=== PATIENT | female | born 1980 | race Two or more races ===

== ENCOUNTER 2017-04-01 08:55 | Observation (INO) | payer OTHER ==
[~2017-04-01] VITALS: Ht 165.1 cm; Wt 93.9 kg
[2017-04-01 09:02] VITALS: BP 151/71
[2017-04-01] MEDS ORDERED: TERBUTALINE SULFATE 1 MG/ML 1ML VIAL SC SCH (10:30)
[2017-04-01] MEDS ORDERED: LACTATED RINGER'S 1,000 ML IV ONE (11:55)
[2017-04-01] MEDS ORDERED: NIFEdipine 10 MG CAP PO ONE (13:15)
[2017-04-01] MEDS ORDERED: LACTATED RINGER'S 1,000 ML IV SCH (13:15)
[2017-04-01 13:22] LABS: Basophils # (auto) 0 uL; Basophils % (auto) 0.4 % (0.0-2.0); Eosinophils # (auto) 0 uL; Eosinophils % (auto) 0.3 % (0.0-7.0); Hematocrit 30.5 % (36.0-46.0); Hemoglobin 10.4 g/dL (12.2-16.2); Lymphocytes # (auto) 1.5 uL; Lymphocytes % (auto) 13.7 % (10.0-50.0); Mean Corpuscular Hgb Conc. 34.3 g/dL (32.0-36.0); Mean Corpuscular Volume 84.5 fL (80.0-100.0); Mean Platelet Volume 8.3 fL (7.4-10.4); Monocytes # (auto) 0.4 uL; Monocytes % (auto) 4.1 % (0.0-12.0); Neutrophils # (auto) 8.7 uL; Neutrophils % (auto) 81.5 % (37.0-80.0); Platelet Count (auto) 246 10^3/uL (140-450); Red Cell Distribution Width 13.8 % (11.6-16.0); White Blood Cell 10.7 10^3/uL (4.4-10.8)
[2017-04-01] MEDS ORDERED: BETAMETHASONE ACET (6MG/ML) 5ML VIAL IM SCH (13:30)
[2017-04-01] MEDS ORDERED: ERYTHROMY OPTH OINT 5mg/gm 1gm OP ONE (14:45)
[2017-04-01] MEDS ORDERED: PHYTONADIONE 1MG/0.5ML SYRINGE NEONATAL IM ONE (14:45)
[2017-04-01] MEDS ORDERED: HEPATITIS B VACCINE PED (PF) 10 MCG/0.5 ML IM ONE (14:45)
== END 2017-04-01 17:00 | disposition home or self-care (01) | DRG 778 ==
LOC: ER 08:55 → LDRP 09:20 → EDUNIT# 09:20 → LDRP 09:51
PROVIDERS: ADMIT Specialist; ATTEND Specialist
DX: O20.0 Threatened abortion (principal); Z3A.35 35 weeks gestation of pregnancy
CPT/HCPCS: 36415; 59025; 76815; 81002; 85025; 96360; 96361; 96372; 99285; G0378; J0702; J3105; 96366

== ENCOUNTER 2017-04-02 13:00 | Observation (INO) | payer OTHER ==
[2017-04-02] MEDS ORDERED: BETAMETHASONE ACET (6MG/ML) 5ML VIAL IM SCH (22:00)
== END 2017-04-02 13:50 | disposition home or self-care (01) | DRG 998 ==
LOC: LDRP 13:00 → EDUNIT# 13:00
PROVIDERS: ADMIT Obstetrics & Gynecology; ATTEND Obstetrics & Gynecology
DX: O26.899 Other specified pregnancy related conditions, unspecified trimester (principal); Z02.89 Encounter for other administrative examinations; Z3A.00 Weeks of gestation of pregnancy not specified
CPT/HCPCS: 59025; 81002; 96372; G0378

== ENCOUNTER 2017-04-13 11:00 | Observation (INO) | payer OTHER | END 2017-04-13 12:37 | disposition home or self-care (01) | DRG 782 | LOC: LDRP 11:00 | PROVIDERS: ADMIT Specialist; ATTEND Specialist | DX: O44.23 Partial placenta previa NOS or without hemorrhage, third trimester (principal); Z3A.36 36 weeks gestation of pregnancy | CPT/HCPCS: 59025; 76818; 82948; 82962; G0378 ==

== ENCOUNTER 2017-04-15 03:03 | Inpatient (IN) | payer OTHER ==
[2017-04-15] VITALS (11 sets, daily range): BP systolic 110–130; BP diastolic 67–87
[~2017-04-15] VITALS: Ht 1 cm; Wt 0.5 kg
[2017-04-15] MEDS ORDERED: LACTATED RINGER'S 1,000 ML IV SCH (03:13)
[2017-04-15 03:46] LABS: Basophils # (auto) 0.1 uL; Basophils % (auto) 0.5 % (0.0-2.0); Eosinophils # (auto) 0.1 uL; Eosinophils % (auto) 0.6 % (0.0-7.0); Hematocrit 34.5 % (36.0-46.0); Hemoglobin 11.6 g/dL (12.2-16.2); Lymphocytes # (auto) 2.6 uL; Lymphocytes % (auto) 21.1 % (10.0-50.0); Mean Corpuscular Hemoglobin 28.3 pg (28.0-32.0); Mean Corpuscular Hgb Conc. 33.5 g/dL (32.0-36.0); Mean Corpuscular Volume 84.5 fL (80.0-100.0); Mean Platelet Volume 8.4 fL (7.4-10.4); Monocytes # (auto) 0.7 uL; Monocytes % (auto) 5.4 % (0.0-12.0); Neutrophils # (auto) 8.8 uL; Neutrophils % (auto) 72.4 % (37.0-80.0); Platelet Count (auto) 289 10^3/uL (140-450); White Blood Cell 12.1 10^3/uL (4.4-10.8)
[2017-04-15 04:13] LABS: Albumin 2.7 g/dL (3.4-5.0); BUN/Creatinine Ratio 21.2; Potassium 3.9 mmol/L (3.5-5.1)
[2017-04-15 04:15] LABS: Bilirubin, Total 0.7 mg/dL (0.2-1.0); Total Protein 7.6 g/dL (6.4-8.2)
[2017-04-15 04:16] LABS: INR 0.92 (0.9-1.15); Partial Thromboplastin Time 28.1 sec (22.64-33.71)
[2017-04-15 04:47] LABS: Urine Bilirubin Negative (Negative); Urine Blood Negative /uL (Negative); Urine Color Yellow (Yellow); Urine Glucose Normal (Normal); Urine Mucus FEW (None Seen); Urine Nitrite Negative (Negative); Urine RBC 1 /hpf (0 - 4); Urine Squamous Epithelial Cell MANY /hpf (<5); Urine Urobilinogen Normal (Negative); Urine WBC Clumps PRESENT /hpf (None Seen)
[2017-04-15 04:49] LABS: Urine Ketone 2+ (Negative)
[2017-04-15] MEDS ORDERED: TERBUTALINE SULFATE 1 MG/ML 1ML VIAL SC ONE (05:45)
[2017-04-15] MEDS ORDERED: TETRACAINE 1% INJ 2 ML VIAL IJ ONE (07:01)
[2017-04-15] MEDS ORDERED: MIDAZOLAM HCL 1MG/1ML-2 ML VIAL ONE (07:03)
[2017-04-15] MEDS ORDERED: MORPHINE SULF(PF) 0.5MG/ML 10ML VIAL ONE (07:03)
[2017-04-15] MEDS ORDERED: fentaNYL CITRATE 100 MCG/2 ML VL ONE (07:03)
[2017-04-15] MEDS ORDERED: CARBOPROST TROMETHAMINE 250 MCG/1ML VIAL IM ONE (07:29)
[2017-04-15] MEDS ORDERED: OXYTOCIN 10 UNIT/ML 10ML VIAL ONE (07:38)
[2017-04-15] MEDS ORDERED: ceFAZolin 1GM VL ONE (07:38)
[2017-04-15] MEDS ORDERED: NALOXONE HCL 0.4 MG/ML VIAL IV PRN (08:15)
[2017-04-15] MEDS ORDERED: HYDROmorphone HCL 2 MG/ML VL IV PRN ×3 (08:15)
[2017-04-15] MEDS ORDERED: LABETALOL HCL 5 MG/ML 4ML SYRINGE IV PRN (08:15)
[2017-04-15] MEDS ORDERED: MORPHINE SULF INJ 2 MG/ML SYRINGE 1ML IV PRN ×2 (08:15)
[2017-04-15] MEDS ORDERED: DEXAMETHASONE SOD PHOS 10MG/1ML VIAL INJ IV PRN (08:15)
[2017-04-15] MEDS ORDERED: LACT. RINGERS/OXYTOCIN 20UNITS 1,000 ML IV ONE (08:15)
[2017-04-15] MEDS ORDERED: KETOROLAC TROMETH 30 MG/ML 1ML VIAL IV PRN ×2 (08:15)
[2017-04-15] MEDS ORDERED: ONDANSETRON HCL 4 MG/2 ML VIAL IV PRN ×3 (08:15)
[2017-04-15] MEDS ORDERED: ePHEDrine SULFATE 50 MG/ML AMP IV PRN (08:15)
[2017-04-15] MEDS ORDERED: MIDAZOLAM HCL 1MG/1ML-2 ML VIAL IV PRN (08:15)
[2017-04-15] MEDS ORDERED: KETOROLAC TROMETH 30 MG/ML 1ML VIAL IV ONE (08:15)
[2017-04-15] MEDS ORDERED: NALBUPHINE HCL 10 MG/1ml INJECTION SUBCUT ONE (08:15)
[2017-04-15] MEDS ORDERED: diphenhdrAMINE HCL 50 MG/1 ML VL IV PRN (08:15)
[2017-04-15] MEDS ORDERED: OXYTOCIN 10UNIT/ML 1ML VIAL ONE (08:32)
[2017-04-15] MEDS: ceFAZolin 1GM/50ML D5W 50 ML IV SCH ×2 (14:00→22:00)
[2017-04-15 19:02] LABS: Basophils # (auto) 0 uL; Basophils % (auto) 0.2 % (0.0-2.0); Eosinophils # (auto) 0 uL; Eosinophils % (auto) 0.3 % (0.0-7.0); Hematocrit 32.1 % (36.0-46.0); Hemoglobin 10.8 g/dL (12.2-16.2); Lymphocytes # (auto) 1.7 uL; Lymphocytes % (auto) 12.8 % (10.0-50.0); Mean Corpuscular Hemoglobin 28.1 pg (28.0-32.0); Mean Corpuscular Hgb Conc. 33.7 g/dL (32.0-36.0); Mean Corpuscular Volume 83.5 fL (80.0-100.0); Mean Platelet Volume 8.7 fL (7.4-10.4); Monocytes # (auto) 0.8 uL; Neutrophils # (auto) 10.5 uL; Neutrophils % (auto) 80.7 % (37.0-80.0); Platelet Count (auto) 253 10^3/uL (140-450); Red Cell Distribution Width 14.2 % (11.6-16.0)
[2017-04-15 20:40] LABS: Basophils # (auto) 0 uL; Basophils % (auto) 0.3 % (0.0-2.0); Eosinophils # (auto) 0 uL; Eosinophils % (auto) 0.2 % (0.0-7.0); Hematocrit 31.2 % (36.0-46.0); Hemoglobin 10.6 g/dL (12.2-16.2); Lymphocytes # (auto) 1.4 uL; Lymphocytes % (auto) 11.4 % (10.0-50.0); Mean Corpuscular Hemoglobin 28.1 pg (28.0-32.0); Mean Corpuscular Volume 82.8 fL (80.0-100.0); Mean Platelet Volume 8.8 fL (7.4-10.4); Monocytes # (auto) 0.8 uL; Monocytes % (auto) 6.7 % (0.0-12.0); Neutrophils # (auto) 10.1 uL; Neutrophils % (auto) 81.4 % (37.0-80.0); Platelet Count (auto) 227 10^3/uL (140-450); Red Cell Distribution Width 13.9 % (11.6-16.0); White Blood Cell 12.4 10^3/uL (4.4-10.8)
[2017-04-16] VITALS (7 sets, daily range): BP systolic 96–130; BP diastolic 57–80
[2017-04-16 06:01] LABS: Basophils # (auto) 0 uL; Basophils % (auto) 0.2 % (0.0-2.0); Eosinophils # (auto) 0 uL; Eosinophils % (auto) 0.2 % (0.0-7.0); Hematocrit 31.3 % (36.0-46.0); Hemoglobin 10.5 g/dL (12.2-16.2); Lymphocytes # (auto) 0.7 uL; Lymphocytes % (auto) 6.9 % (10.0-50.0); Mean Corpuscular Hemoglobin 28.2 pg (28.0-32.0); Mean Corpuscular Hgb Conc. 33.6 g/dL (32.0-36.0); Mean Platelet Volume 8.4 fL (7.4-10.4); Monocytes # (auto) 0.6 uL; Monocytes % (auto) 5.9 % (0.0-12.0); Neutrophils # (auto) 8.5 uL; Neutrophils % (auto) 86.8 % (37.0-80.0); Platelet Count (auto) 220 10^3/uL (140-450); Red Cell Distribution Width 14.2 % (11.6-16.0); White Blood Cell 9.8 10^3/uL (4.4-10.8)
[2017-04-16] MEDS: LACTATED RINGER'S 1,000 ML IV SCH ×2 (08:51→18:51)
[2017-04-16] MEDS ORDERED: BISACODYL 10 MG RECT SUPP PR PRN ×2 (09:00→10:00)
[2017-04-16] MEDS: DOCUSATE SOD 100 MG CAP PO SCH ×2 (09:39→22:05)
[2017-04-16] MEDS ORDERED: SIMETHICONE 80 MG CHEWABLE TABLET PO SCH (12:00)
[2017-04-16] MEDS ORDERED: ACETAMINOPHEN 325 MG TAB PO PRN (12:15)
[2017-04-16] MEDS ORDERED: HYDROcodone-ACET 5/325MG TAB PO PRN (12:30)
[2017-04-16] MEDS: LEVOFLOXACIN 500 MG TAB PO SCH (12:30)
[2017-04-16 13:28] LABS: Basophils # (auto) 0 uL; Basophils % (auto) 0.1 % (0.0-2.0); Eosinophils # (auto) 0 uL; Hematocrit 32.5 % (36.0-46.0); Hemoglobin 11.2 g/dL (12.2-16.2); Lymphocytes # (auto) 0.6 uL; Lymphocytes % (auto) 6.8 % (10.0-50.0); Mean Corpuscular Hemoglobin 28.6 pg (28.0-32.0); Mean Corpuscular Hgb Conc. 34.5 g/dL (32.0-36.0); Mean Corpuscular Volume 82.9 fL (80.0-100.0); Mean Platelet Volume 8.2 fL (7.4-10.4); Monocytes # (auto) 0.5 uL; Monocytes % (auto) 5.4 % (0.0-12.0); Neutrophils # (auto) 7.8 uL; Neutrophils % (auto) 87.7 % (37.0-80.0); Platelet Count (auto) 228 10^3/uL (140-450); Red Cell Distribution Width 14.3 % (11.6-16.0); White Blood Cell 8.9 10^3/uL (4.4-10.8)
[2017-04-16 14:11] LABS: Urine Bilirubin Negative (Negative); Urine Color Yellow (Yellow); Urine Glucose Normal (Normal); Urine Ketone Negative (Negative); Urine Nitrite Negative (Negative); Urine RBC 255 /hpf (0 - 4); Urine Squamous Epithelial Cell FEW /hpf (<5); Urine Urobilinogen Normal (Negative); Urine pH 7.5 (5.0-8.0)
[2017-04-16 14:12] LABS: Urine Blood 3+ /uL (Negative)
[2017-04-16] MEDS: HYDROcodone-ACET 5/325MG TAB PO PRN (17:02)
[2017-04-16] MEDS: IBUPROFEN 800 MG TAB PO PRN (22:05)
[2017-04-17 03:09] VITALS: BP 98/60
[2017-04-17] MEDS: LACTATED RINGER'S 1,000 ML IV SCH ×2 (04:51→14:51)
[2017-04-17] MEDS: HYDROcodone-ACET 5/325MG TAB PO PRN ×3 (05:45→21:39)
[2017-04-17 08:00] VITALS: BP 100/58
[2017-04-17] MEDS: DOCUSATE SOD 100 MG CAP PO SCH ×2 (10:13→23:10)
[2017-04-17] MEDS: LEVOFLOXACIN 500 MG TAB PO SCH (10:13)
[2017-04-17] MEDS: SIMETHICONE 80 MG CHEWABLE TABLET PO PRN (11:54)
[2017-04-17 12:00] VITALS: BP 105/68
[2017-04-17 16:00] VITALS: BP 118/69
[2017-04-17 18:34] VITALS: BP 106/63
[2017-04-17] MEDS ORDERED: PRENCAP61 PO (21:31)
[2017-04-17] MEDS ORDERED: NIF10C PO (21:33)
[2017-04-17 23:30] VITALS: BP 104/63
[2017-04-18] MEDS: LACTATED RINGER'S 1,000 ML IV SCH (00:51)
[2017-04-18 03:30] VITALS: BP 102/59
[2017-04-18] MEDS: HYDROcodone-ACET 5/325MG TAB PO PRN (06:47)
[2017-04-18] MEDS: SIMETHICONE 80 MG CHEWABLE TABLET PO PRN (07:30)
[2017-04-18] MEDS: IBUPROFEN 800 MG TAB PO PRN (07:30)
[2017-04-18 08:00] VITALS: BP 112/70
[2017-04-18] MEDS: DOCUSATE SOD 100 MG CAP PO SCH (08:54)
[2017-04-18] MEDS: LEVOFLOXACIN 500 MG TAB PO SCH (08:54)
== END 2017-04-18 08:45 | disposition home or self-care (01) | DRG 766 ==
LOC: LDRP 03:03
PROVIDERS: ADMIT Obstetrics & Gynecology; ATTEND Obstetrics & Gynecology
PROC: 3E033VJ Introduction of Other Hormone into Peripheral Vein, Percutaneous Approach (ICD-10-PCS; 2017-04-15)
PROC: 30233N1 Transfusion of Nonautologous Red Blood Cells into Peripheral Vein, Percutaneous Approach (ICD-10-PCS; 2017-04-15)
PROC: 10D00Z1 Extraction of Products of Conception, Low, Open Approach (ICD-10-PCS; principal; 2017-04-15 07:20)
DX: O44.23 Partial placenta previa NOS or without hemorrhage, third trimester (principal); Z37.0 Single live birth; Z3A.37 37 weeks gestation of pregnancy
CPT/HCPCS: 36415; 51702; 59025; 80053; 81001; 85025; 85610; 85730; 86850; 86870; 86900; 86901; 86922; 87086; 87088; 87186; 88307; 90384; 94762; 96361; 96366; J0690; J1885; J2250; J2590